=== PATIENT | male | born 1995 | race Caucasian/White ===

== ENCOUNTER 2017-11-08 18:40 | Inpatient (IN) | payer SELFPAY ==
[~2017-11-08] VITALS: Ht 182.9 cm; Wt 61.7 kg
[2017-11-08] VITALS (7 sets, daily range): BP systolic 107–120; BP diastolic 56–70; PULSE 92–101; TEMP 98.4–102.6
[~2017-11-08 18:40] MED LIST: NORCO 325 MG-51 TAB PO; PROZAC 10MG10 MG PO; STRATTERA 40MG40 MG PO
[2017-11-09] VITALS (21 sets, daily range): BP systolic 80–133; BP diastolic 42–72; PULSE 64–104; TEMP 97.3–101.8
[2017-11-09 03:28] LABS: COLLECTION METHOD CLEAN CATCH
[2017-11-09 03:36] LABS: MUCOUS Present /lpf; PH 5 (5-8); SQUAMOUS EPITHELIAL 0-2 /hpf; URINE APPEARANCE Clear; URINE BACTERIA None Seen /hpf; URINE BILIRUBIN Negative (NEGATIVE); URINE BLOOD 2+ (NEGATIVE); URINE COLOR Yellow; URINE GLUCOSE Negative (NEGATIVE); URINE KETONE Trace (NEGATIVE); URINE LEUKOCYTE ESTERASE Negative (NEGATIVE); URINE PROTEIN(semi-quant) Negative (NEGATIVE); URINE UROBILINOGEN Negative (NEGATIVE)
[2017-11-09 06:06] LABS: HEMATOCRIT 43.9 % (36.0-47.0); HEMOGLOBIN 14.6 g/dl (12.5-16.1); MEAN CELL VOLUME 87 fl (80.0-95.0); MEAN CORPUSCULAR HEMOGLOBIN 29 pg (26.0-32.0); MEAN CORPUSCULAR HGB CONC 33 g/dl (33.0-37.0); MEAN PLATELET VOLUME 10.5 fl (7.4-10.4); PLATELET COUNT 158 K/mm3 (130-400); RED BLOOD COUNT 5.03 M/mm3 (4.20-5.60); WHITE BLOOD COUNT 16.1 K/mm3 (4.8-10.8)
[2017-11-09 06:12] LABS: ADD PATHOLOGY DIFF REVIEW NO
[2017-11-09 06:15] LABS: CALCIUM 8.8 mg/dL (8.4-10.2); CREATININE, serum 1.01 mg/dL (0.66-1.25); POTASSIUM 4.1 mmol/L (3.4-5.0)
[2017-11-09 06:53] LABS: BAND 15 % (0-10); LYMPHOCYTE 5 % (20.0-51.0); NEUTROPHILS 72 % (42.0-75.2); PLATELET ESTIMATE NORMAL (NORMAL); TOTAL CELLS COUNTED 100
[2017-11-10 01:07] VITALS: BP 116/61; PULSE 64; TEMP 98.5
[2017-11-10 05:38] VITALS: BP 115/60; PULSE 63; TEMP 99.2
[2017-11-10 09:29] VITALS: BP 104/53; PULSE 72; TEMP 98.2
== END 2017-11-10 12:30 | disposition home or self-care (01) | DRG 661 ==
LOC: SURG 18:40
PROVIDERS: Urology
PROC: 0T748DZ Dilation of Left Kidney Pelvis with Intraluminal Device, Via Natural or Artificial Opening Endoscopic (ICD-10-PCS; principal; 2017-11-09 09:00)
PROC: BT141ZZ Fluoroscopy of Kidneys, Ureters and Bladder using Low Osmolar Contrast (ICD-10-PCS; 2017-11-09 09:00)
DX: N13.6 Pyonephrosis (principal)
CPT/HCPCS: C1758; C1769; C2617; J0696; J1100; J2270; J2405; J2543; J2704; J2765; J3010; J7030; J7120; Q9967

== ENCOUNTER 2017-12-03 12:56 | Inpatient (IN) | payer OTHER ==
[~2017-12-03] VITALS: Ht 182.9 cm; Wt 67.5 kg
[2018-01-04] VITALS (12 sets, daily range): BP systolic 98–125; BP diastolic 46–78; PULSE 70–99; TEMP 98.1–98.9
[2018-01-05 01:33] VITALS: BP 104/47; PULSE 74; TEMP 98.6
[2018-01-05 05:31] VITALS: BP 103/41; PULSE 54; TEMP 97.7
[2018-01-05 06:46] LABS: BASO % 0.3 % (0.0-2.0); EOS % 0.1 % (0-4.0); GRAN # 11.9 (1.4-6.5); GRAN % 78.2 % (42.2-75.2); HEMATOCRIT 37.9 % (36.0-47.0); HEMOGLOBIN 12.5 g/dl (12.5-16.1); LYMPH # 1.9 (1.2-3.4); LYMPH % 12.4 % (20.0-51.0); MEAN CELL VOLUME 87 fl (80.0-95.0); MEAN CORPUSCULAR HEMOGLOBIN 29 pg (26.0-32.0); MEAN CORPUSCULAR HGB CONC 33 g/dl (33.0-37.0); MEAN PLATELET VOLUME 10.3 fl (7.4-10.4); MONO # 1.3 (0.1-0.6); MONO % 8.4 % (1.7-9.3); PLATELET COUNT 177 K/mm3 (130-400); RED BLOOD COUNT 4.36 M/mm3 (4.20-5.60); REDCELL DISTRIBUTION WIDTH-CV 12.8 % (11.5-14.5)
[2018-01-05 07:00] VITALS: BP 105/44; PULSE 69; TEMP 97.4
[2018-01-05 10:25] VITALS: BP 108/57; PULSE 63; TEMP 97.3
[2018-01-05 13:15] VITALS: BP 110/60; PULSE 71; TEMP 98.5
== END 2018-01-05 15:00 | disposition home or self-care (01) | DRG 661 ==
LOC: INPTSU 01-04 05:19 → SURG 01-04 05:19
PROVIDERS: Urology
PROC: 8E0W4CZ Robotic Assisted Procedure of Trunk Region, Percutaneous Endoscopic Approach (ICD-10-PCS; 2018-01-04)
PROC: 0TT14ZZ Resection of Left Kidney, Percutaneous Endoscopic Approach (ICD-10-PCS; principal; 2018-01-04 07:30)
DX: N13.5 Crossing vessel and stricture of ureter without hydronephrosis (principal)
CPT/HCPCS: A4314; J0690; J1100; J1650; J1885; J2250; J2405; J2704; J2765; J3010; J7120